=== PATIENT | male | born 1950 | race Caucasian/White ===

== ENCOUNTER → 2017-06-06 | Outpatient (CLI) | payer MEDICARE, OTHER ==
[2015-09-29 21:00] VITALS: BP 139/102
[~2017-06-06] MED LIST: ALOG1TAB PO; ASPI-630 PO; FENO50CA PO; FURO-69 PO; ISOS30TA PO; LINA5TAB4 PO; LOSA25TA PO; NEBI5TAB2 PO; NITR0.4T22 SL; OXYC10TA45 PO; OXYC5CAP PO; PRAV10TA2 PO
[2017-06-06 10:34] LABS: ALBUMIN 3.7 g/dL (3.4-5.0); CALCIUM 9.3 mg/dL (8.5-10.1); CREATININE 1.2 mg/dL (0.7-1.3); GFR 60.6; TOTAL BILIRUBIN 0.5 mg/dL (0.2-1.0); TOTAL PROTEIN 7.5 g/dL (6.4-8.2)
[2017-06-06 22:13] LABS: HEMOGLOBIN A1C 5.4 % (4.8-5.6)
== END | disposition home or self-care (01) ==
LOC: LAB 09:25
PROVIDERS: ATTEND Nurse Practitioner
DX: E78.5 Hyperlipidemia, unspecified (principal); R79.89 Other specified abnormal findings of blood chemistry
CPT/HCPCS: 36415; 80053; 80061; 83036

== ENCOUNTER → 2017-11-01 | Outpatient (CLI) | payer MEDICARE, OTHER ==
[2015-09-29 21:00] VITALS: BP 139/102
[2017-11-02 11:35] LABS: FREE T4 0.79 ng/dL (0.76-1.46); THYROID STIM HORMONE (TSH) 6.257 uIU/mL (0.358-3.740)
== END | disposition home or self-care (01) ==
LOC: LAB 14:14
PROVIDERS: ATTEND Nurse Practitioner
DX: R40.0 Somnolence (principal); E78.5 Hyperlipidemia, unspecified; R94.6 Abnormal results of thyroid function studies
CPT/HCPCS: 36415; 84436; 84439; 84443

== ENCOUNTER → 2017-12-12 | Outpatient (CLI) | payer MEDICARE, OTHER ==
[2015-09-29 21:00] VITALS: BP 139/102
--- NOTE | 2017-12-12 16:18 | RAD ---
Bilateral hands, 6 views, 12/12/2017: HISTORY: Arthritis There are mild degenerative changes at scattered interphalangeal joints. There is moderate degenerative change at the left first CMC joint with several small periarticular calcifications. Degenerative changes also evident at the articulation between the scaphoid and multangular bones. No bone erosions are seen. No fracture or dislocation is evident. IMPRESSION: 1. Mild degenerative changes at scattered interphalangeal joints. 2. Moderate degenerative laterally at the left wrist including the first CMC joint. Electronically signed by: Vargas Leonardo MD (12/12/2017 4:15 PM) [facility]
== END | disposition home or self-care (01) ==
LOC: PMG 12:26
PROVIDERS: ATTEND Physician Assistant Medical
DX: M19.042 Primary osteoarthritis, left hand (principal); M19.041 Primary osteoarthritis, right hand; I12.9 Hypertensive chronic kidney disease with stage 1 through stage 4 chronic kidney disease, or unspecified chronic kidney disease; N18.9 Chronic kidney disease, unspecified; E78.5 Hyperlipidemia, unspecified
CPT/HCPCS: 73130

== ENCOUNTER 2019-01-24 09:33 | Inpatient (IN) | payer MEDICARE, OTHER ==
[~2019-01-24] VITALS: Ht 180.3 cm; Wt 93.9 kg
[~2019-01-24 09:33] MED LIST changes: -OXYC10TA45 PO; +OXYC10TA46 PO
[2019-01-24] MEDS ORDERED: IV NORMAL SALINE 1,000ML 1,000 ML IV ONE ×2 (09:45→11:15)
[2019-01-24 09:57] LABS: BASO % 1 % (0-3); EOS # 0.1 x10^3/uL (0.0-0.7); EOS % 2 % (0-3); HEMOGLOBIN 13.1 g/dL (13.0-17.5); LYMPH # 1.3 x10^3/uL (1.0-4.8); LYMPH % 18 % (24-48); MEAN CORPUSCULAR HEMOGLOBIN 30 pg (25-35); MEAN CORPUSCULAR HGB CONC 33 g/dL (31-37); MEAN CORPUSCULAR VOLUME 92 fL (79-100); MONO # 0.8 x10^3/uL (0.0-1.1); MONO % 11 % (0-9); NEUT # 4.9 x10^3uL (1.8-7.7); NEUT % 69 % (31-73); PLATELET COUNT 192 x10^3/uL (140-400); RED BLOOD COUNT 4.36 x10^6/uL (4.30-5.70); RED CELL DISTRIBUTION WIDTH 14.5 % (11.5-14.5); WHITE BLOOD COUNT 7.2 x10^3/uL (4.0-11.0)
--- NOTE | 2019-01-24 10:02 | PHYS DOC ---
Past History Past Medical History: Depression, Diabetes, High Cholesterol, Heart Disease, Hypertension, SC, Renal Failure Past Surgical History: Other Alcohol Use: None Drug Use: None Adult General Chief Complaint Chief Complaint: ALTERED MENTAL STATUS HPI HPI 68-year-old male presents with altered mental status. The patient woke up on Sunday, 3 days ago, feeling normal. He began to feel slightly ill after eating breakfast. Around 11 AM, he had sudden onset of "the ocean" sound in his left ear, a 2-3 second flash of extremely bright light in his vision, dry mouth, and then the feeling of being off balance and unsteady. The patient got helps to his bed and took a nap. After he laid down and before he went to sleep, he had decreased muscle control of his extremities. He woke up 6 hours later and was able to move his arms and legs. He was able to walk, but continued to feel off balance and had dry mouth as well as the rushing sound in his left ear. The patient was concerned this could be a medication reaction so he is not taking any this prescription medications except for his pain patch and gabapentin. The patient has been on all of his medications for a while. His most recent change was to a new patch 2 weeks ago. On the way to his doctor's office today, he had to chain puller because he was feeling dizzy while driving. He was sent to the emergency room by his primary care physician. She denies any numbness or weakness in his extremities at this time. He can walk, but feels unsteady. He denies fever or chills. He has not been feeling any illness prior to this episode. Review of Systems Review of Systems Constitutional: Denies fever or chills [] Eyes: Denies change in visual acuity, redness, or eye pain [] HENT: Denies nasal congestion or sore throat. Rushing sound in the left ear [] Respiratory: Denies cough or shortness of breath [] Cardiovascular: No additional information not addressed in HPI [] GI: Denies abdominal pain, nausea, vomiting, bloody stools or diarrhea [] : Denies dysuria or hematuria [] Musculoskeletal: Denies back pain or joint pain [] Integument: Denies rash or skin lesions [] Neurologic: Dizziness, difficulty with gait[] Endocrine: Denies polyuria or polydipsia [] All other systems were reviewed and found to be within normal limits, except as documented in this note. Current Medications Current Medications Current Medications Medications (Trade) Dose Ordered Sig/Carl Start Time Stop Time Status Last Admin Dose Admin Sodium Chloride 1,000 ml @ 1,000 mls/hr 1X ONCE 01/24/19 09:45 01/24/19 10:44 Allergies Allergies Allergies Coded Allergies Type Severity Reaction Last Updated Verified No Known Drug Allergies 05/01/14 No Physical Exam Physical Exam Constitutional: Well developed, well nourished, no acute distress, non-toxic appearance. [] HENT: Normocephalic, atraumatic, bilateral external ears normal, oropharynx moist, no oral exudates, nose normal. Bilateral tympanic membranes normal. [] Eyes: PERRLA, EOMI, conjunctiva normal, no discharge. [] Neck: Normal range of motion, no tenderness, supple, no stridor. [] Cardiovascular:Heart rate regular rhythm, no murmur [] Lungs & Thorax: Bilateral breath sounds clear to auscultation [] Abdomen: Bowel sounds normal, soft, no tenderness, no masses, no pulsatile masses. [] Skin: Warm, dry, no erythema, no rash. [] Back: No tenderness, no CVA tenderness. [] Extremities: No tenderness, no cyanosis, no clubbing, ROM intact, no edema. [] Neurologic: Alert and oriented X 3, normal motor function, normal sensory function, no focal deficits noted. [] Psychologic: Affect normal, judgement normal, mood normal. [] Current Patient Data Vital Signs Vital Signs Date Time Temp Pulse Resp B/P (MAP) Pulse Ox O2 Delivery O2 Flow Rate FiO2 01/24/19 09:45 63 18 97 Room Air EKG EKG Sinus rhythm, rate 58, normal axis, no ST elevations or depressions.[] Radiology/Procedures Radiology/Procedures [] Impressions: EXAM: CT Head without IV contrast CLINICAL HISTORY: Altered mental status COMPARISON: None. TECHNIQUE: Routine CT of the head without contrast. Soft tissues and bone windows were reviewed. PQRS compliance statement - One or more of the following individualized dose reduction techniques were utilized for this study: 1. Automated exposure control 2. Adjustment of the mA and/or kV according to patient size 3. Use of iterative reconstruction technique FINDINGS: There is no evidence of hemorrhage, mass or extra-axial fluid collection. Agustin-white differentiation is maintained with no evidence of edema. There is no mass effect or shift of the intracranial structures. The ventricles, basilar cisterns and cortical sulci are normal in size and configuration for the patients stated age. The cerebellum and brainstem are unremarkable. The calvarium demonstrates no evidence of fracture or focal lesion. There is normal aeration of the visualized paranasal sinuses and mastoid air cells. The visualized portions of the orbits are normal. Atherosclerotic calcifications of the intracranial internal carotid and vertebral arteries is seen. IMPRESSION: 1. No evidence for acute intracranial process. Electronically signed by: Andrew Titus MD (01/24/2019 10:18 AM) [id number] DICTATED AND SIGNED BY: ANDREW TITUS MD DATE: 01/24/19 1018 CC: DANIEL CAMPOS DO; MAR[facility] ELENA STARKS ~ EXAM: AP View of the chest DATE: 01/24/2019 9:39 AM INDICATION: Altered mental status COMPARISON: No Prior FINDINGS: The heart is not enlarged. Mediastinal and hilar contours are normal. No focal parenchymal airspace opacity. No pleural effusion or pneumothorax. IMPRESSION: 1. No radiographic evidence for acute cardiopulmonary process. Electronically signed by: Andrew Titus MD (01/24/2019 10:13 AM) [id number] DICTATED AND SIGNED BY: ANDREW TITUS MD DATE: 01/24/19 1013 CC: DANIEL CAMPOS DO; MARÍA ELENA STARKS ~ EXAM: Renal sonogram. HISTORY: Elevated creatinine. TECHNIQUE: Sonographic imaging of the kidneys and bladder was performed. COMPARISON: CT dated 07/21/2016. FINDINGS: The right kidney measures 12.9 cm [id number]. Left kidney measures 12.9 cm [id number]-[id number]. There there is suspected caliectasis involving the upper pole the right kidney. No hydronephrosis seen. There are few echogenic foci within both kidneys likely due to nonobstructing stones, the largest of which is seen on the left measuring 5 mm. The urinary bladder is unremarkable. The ureteral jets are both seen. IMPRESSION: 1. Suspected right upper pole caliectasis. There is no zayda hydronephrosis. 2. Suspected bilateral nephrolithiasis. Electronically signed by: Natalie Walker MD (01/24/2019 1:36 PM) [place] [id number] DICTATED AND SIGNED BY: NATALIE WALKER MD DATE: 01/24/19 8931 CC: DANIEL CAMPOS DO; MARÍA ELENA STARKS ~ Course & Med Decision Making Course & Med Decision Making Pertinent Labs and Imaging studies reviewed. (See chart for details) Patient's EKG is unremarkable. His chest x-ray is unremarkable. His head CT is negative for acute findings. His labs show a creatinine of 4.3 and a BUN of 39. His previous labs in the computer had a normal creatinine of 1.2. The patient is on several medications including Losartan 100mg. I spoke with Dr. Young and he has requested a renal ultrasound prior to the patient. This will determine where he will be admitted to. The patient's ultrasound was negative for obstruction. We'll admit the patient to this facility. Dr. Young has accepted the patient for admission. [] Dragon Disclaimer Dragon Disclaimer This electronic medical record was generated, in whole or in part, using a voice recognition dictation system. Departure Departure: Impression: Primary Impression: Dizziness Additional Impressions: Elevated serum creatinine Gait disturbance Disposition: ADMITTED INPATIENT Admitting Physician: Eliana Young Condition: STABLE Referrals: MARÍA ELENA STARKS (PCP) Problem Qualifiers DANIEL CAMPOS DO Jan 24, 2019 10:02
[2019-01-24] MEDS ORDERED: GABA600T7 PO (10:13)
[2019-01-24] MEDS ORDERED: FERR-36 PO (10:13)
[2019-01-24] MEDS ORDERED: CALC-614 PO (10:13)
[2019-01-24] MEDS ORDERED: TIZA4TAB2 PO (10:13)
[2019-01-24] MEDS ORDERED: MORP15TA PO (10:13)
[2019-01-24] MEDS ORDERED: OMEP20TA8 PO (10:13)
[2019-01-24] MEDS ORDERED: MULT1TAB52 PO (10:13)
[2019-01-24] MEDS ORDERED: CARV25TA PO (10:13)
[2019-01-24] MEDS ORDERED: BUPR1PAT6 TP (10:13)
[2019-01-24] MEDS ORDERED: LEVO75TA5 PO (10:13)
[2019-01-24 10:15] LABS: ALBUMIN 3.6 g/dL (3.4-5.0); ALBUMIN/GLOBULIN RATIO 1.1 (1.0-1.7); CALCIUM 8.4 mg/dL (8.5-10.1); CREATININE 4.3 mg/dL (0.7-1.3); GFR 13.8; POTASSIUM 4.4 mmol/L (3.5-5.1); TOTAL BILIRUBIN 0.8 mg/dL (0.2-1.0); TOTAL PROTEIN 6.8 g/dL (6.4-8.2)
--- NOTE | 2019-01-24 10:16 | RAD ---
EXAM: AP View of the chest DATE: 01/24/2019 9:39 AM INDICATION: Altered mental status COMPARISON: No Prior FINDINGS: The heart is not enlarged. Mediastinal and hilar contours are normal. No focal parenchymal airspace opacity. No pleural effusion or pneumothorax. IMPRESSION: 1. No radiographic evidence for acute cardiopulmonary process. Electronically signed by: Andrew Vivas MD (01/24/2019 10:13 AM) [id number]
--- NOTE | 2019-01-24 10:21 | RAD ---
EXAM: CT Head without IV contrast CLINICAL HISTORY: Altered mental status COMPARISON: None. TECHNIQUE: Routine CT of the head without contrast. Soft tissues and bone windows were reviewed. PQRS compliance statement - One or more of the following individualized dose reduction techniques were utilized for this study: 1. Automated exposure control 2. Adjustment of the mA and/or kV according to patient size 3. Use of iterative reconstruction technique FINDINGS: There is no evidence of hemorrhage, mass or extra-axial fluid collection. Agustin-white differentiation is maintained with no evidence of edema. There is no mass effect or shift of the intracranial structures. The ventricles, basilar cisterns and cortical sulci are normal in size and configuration for the patients stated age. The cerebellum and brainstem are unremarkable. The calvarium demonstrates no evidence of fracture or focal lesion. There is normal aeration of the visualized paranasal sinuses and mastoid air cells. The visualized portions of the orbits are normal. Atherosclerotic calcifications of the intracranial internal carotid and vertebral arteries is seen. IMPRESSION: 1. No evidence for acute intracranial process. Electronically signed by: Andrew Vivas MD (01/24/2019 10:18 AM) [id number]
[2019-01-24 11:04] LABS: BACTERIA,URINE 0 /HPF (0-FEW); BILIRUBIN,URINE NEG (NEG); CLARITY,URINE HAZY; COLOR,URINE AMBER; GLUCOSE,URINE NEG (NEG); HYALINE CASTS, URINE OCC /HPF; NITRITE,URINE NEG (NEG); RBC,URINE RARE /HPF (0-2); SQUAMOUS EPITHELIAL CELL,UR FEW /LPF; UROBILINOGEN,URINE 0.2 mg/dL (0.2 mg/dL); WBC,URINE RARE /HPF (0-4)
--- NOTE | 2019-01-24 13:39 | RAD ---
EXAM: Renal sonogram. HISTORY: Elevated creatinine. TECHNIQUE: Sonographic imaging of the kidneys and bladder was performed. COMPARISON: CT dated 07/21/2016. FINDINGS: The right kidney measures 12.9 cm [id number]. Left kidney measures 12.9 cm wefw-ly-jtlp. There there is suspected caliectasis involving the upper pole the right kidney. No hydronephrosis seen. There are few echogenic foci within both kidneys likely due to nonobstructing stones, the largest of which is seen on the left measuring 5 mm. The urinary bladder is unremarkable. The ureteral jets are both seen. IMPRESSION: 1. Suspected right upper pole caliectasis. There is no zayda hydronephrosis. 2. Suspected bilateral nephrolithiasis. Electronically signed by: Natalie Munoz MD (01/24/2019 1:36 PM) [id number]
[2019-01-24 16:05] VITALS: BP 177/81
[2019-01-24] MEDS: IV NORMAL SALINE 1,000ML 1,000 ML IV SCH ×2 (16:55→22:12)
[2019-01-24] MEDS: CARVEDILOL 12.5 MG TABLET PO SCH (16:55)
[2019-01-24 17:55] VITALS: BP 137/69
[2019-01-24 17:57] VITALS: BP 143/74
[2019-01-24 17:59] VITALS: BP 139/65
[2019-01-24 18:25] LABS: POTASSIUM 4.7 mmol/L (3.5-5.1)
[2019-01-24 18:36] LABS: CALCIUM 8.4 mg/dL (8.5-10.1); CREATININE 3.6 mg/dL (0.7-1.3); GFR 16.9
--- NOTE | 2019-01-24 18:49 | HP ---
ADMIT DATE: 01/24/2019 HISTORY OF PRESENT ILLNESS: The patient is a 68-year-old male patient who came to the Emergency Room with altered mental status. According to him, he woke up on Sunday, 3 days ago feeling normal. He began to feel slightly ill and ate the breakfast and at around 11:00 a.m., he had sudden onset of rushing sound in his left ear and 2 to 3 seconds flash pf extremely bright lights in his vision, had dry mouth and then feeling of being off balance and unsteady. The patient then got helped his bed, took a nap, after he laid down and before he went to sleep, he had had decreased muscle control of his extremities. He woke up 6 hours later and was able to move his arms and legs. He was able to walk, but continued to feel off balance and had a dry mouth as well as the rushing sound in his left ear. The patient was concerned that this could be medication reaction so he had not taken any of his prescription medication except his pain patch and gabapentin. The patient has been off of all his medication for a while. His most recent change was to a new patch 2 weeks ago. On the way to his doctor's office today, he had to harness puller because he was feeling dizzy while driving, he was sent to the Emergency Room by his primary care physician. He denied, however, any numbness or weakness on his extremities. By the time he arrived to the Emergency Room, where he can walk, but feels unsteady. He denies any fevers, chills, rigors, never had similar illness prior to this episode, he was extensively investigated in the Emergency Room and striking finding was his kidney function has dramatically worsened. His creatinine has risen from 1.2-4.3 and looking at his medication, he is not on any nephrotoxic medication except his losartan. He has had abdominal ultrasound, which basically showed that there is no evidence of hydronephrosis, but has what seems to be bilateral nephrolithiasis. He was given 2 liters of fluid in the Emergency Room, was admitted to the ICU, continue with IV fluid. I held his losartan and aspirin. Continue with all his other medications. PAST MEDICAL HISTORY: Significant for coronary artery disease, status post myocardial infarction, status post stent deployment x 2. He is known to have hypertension, hyperlipidemia, chronic kidney disease, nephrolithiasis, hypothyroidism and left renal cell tumor with partial resection about 4 years ago. PAST SURGICAL HISTORY: Significant for left heart catheterization, PCI with stent deployment, right total knee arthroplasty, bilateral cataract extraction, 3 back surgeries, left elbow surgery. He also had a gastric bypass surgery on 06/27/2016 after which he lost about 106 pounds. ALLERGIES: He has no known drug allergies. MEDICATIONS: He is currently on following medications: He is on tizanidine 4 mg twice a day, ferrous sulfate 325 mg once a day, pravastatin sodium 10 mg once a day, carvedilol 12.5 mg twice a day, losartan potassium 100 mg once a day. He is on aspirin 81 mg once a day, morphine sulfate 50 mg twice a day. He is on Butrans 1 patch topically once weekly. He is on gabapentin 600 mg 3 times a day, calcium citrate 200 mg once a day, omeprazole 20 mg once a day, levothyroxine 25 mcg once a day, multivitamin 1 tablet once a day. FAMILY HISTORY: He has one sister who is still alive and two brothers, one has what seemed to be left middle cerebral artery territory infarct with right-sided hemiplegia and aphasia, the other one seems to be some form of mental illness and has been on psychotropic medication. His sister at age of 69 because of myocardial infarction. His father is still alive at the age of 92. Mother at the age of 63 because of myocardial infarction. SOCIAL HISTORY: He is , has 2 sons. He quit smoking in 1980. He does not drink alcohol or use recreational drugs. REVIEW OF SYSTEMS: As per history of present illness. PHYSICAL EXAMINATION: GENERAL: On arrival to the Emergency Room, the patient looked well and was clearly in no apparent respiratory distress. No pallor, jaundice, cyanosis or thyromegaly. No jugular venous distention. No lower limb edema. VITAL SIGNS: His heart rate was 63, blood pressure was initially 177/81, temperature was 97.7, respiratory rate was 22 and oxygen saturation was 99%. HEAD, EYES, EARS, NOSE AND THROAT: Normocephalic, atraumatic. NECK: Supple. HEART: Showed normal first and second heart sounds with no gallop, rub or murmur. CHEST: Clear to auscultation. No crepitation or rhonchi. ABDOMEN: Distended, soft, nontender. No guarding or rigidity. No organomegaly. All hernial orifice intact. Bowel sounds normal. NEUROLOGIC: He is awake, alert, responding appropriately. All cranial nerves intact. EXTREMITIES: He moves extremities without difficulty. LABORATORY DATA: On arrival to the Emergency Room, he has had lab work done showed a serum sodium 143, potassium 4.4, chloride 104, bicarbonate 30, anion gap of 9, BUN 39, creatinine 4.3, estimated GFR was 13.8 mL per minute. His glucose was 91, calcium was 8.4. Total bilirubin, AST, ALT, alkaline phosphatase were normal. His total protein was 6.8, albumin was 3.6. His white cell count was 7200, hemoglobin 13, hematocrit 40, MCV 92, and platelet count of 192,000. His urinalysis showed the urine was hazy with a pH of 5, specific gravity of 1.015. The urine was negative for protein, glucose, ketones, negative for blood, nitrite and bilirubin, negative for leukocyte esterase, rare rbc's, rare wbc's, and very few bacteria. He apparently has had a CT scan of the head, which basically showed that there is no evidence of hemorrhage, mass, or extraaxial fluid collection. Jacques-white differentiation is maintained with no evidence of edema. There is no mass effect or shift, midline intent or intracranial structures. The ventricles, basilar cisterns and cortical sulci are normal in size and configuration for the patient's stated age. The cerebellum and brainstem are unremarkable. The calvarium demonstrates no evidence of fracture or focal lesion. There is normal aeration in the visualized paranasal sinuses and mastoid air cells are visualized portion of the orbits are normal. Atherosclerotic calcification of the intracranial internal carotid and vertebral arteries are seen. The patient has received around 2 liters of fluid. His chest x-ray showed the heart is not enlarged. Mediastinal hilar contours are normal. No focal parenchymal airspace opacity. No pleural effusion or pneumothorax and he has had abdominal ultrasound, which basically showed the right kidney measures 12.9 cm, pole to pole, left kidney was 12.9. There is suspected atelectasis involving the upper pole of the right kidney, no hydronephrosis seen. There are few echogenic foci within both kidneys, likely due to nonobstructing stones, the largest of which is seen on the left measuring 5 mm. The urinary bladder is unremarkable. Ureteral jets are both seen. ASSESSMENT AND PLAN: The patient was admitted with acute on chronic kidney injury, the cause of which is very clear. There is no evidence of any obstruction. He denies any nausea, vomiting, diarrhea. He is not on any diuretics. My plan is to hold his losartan and start him on IV fluid. He did receive 2 liters of fluid in the Emergency Room. We will continue with 150 mL. We will check his BMP tonight and again tomorrow morning. JAJA FRIED MD DR: NICKOLAS/sherman JOB#: [id number] / [id number]
[2019-01-24 19:16] VITALS: BP 126/64
[2019-01-24] MEDS: GABAPENTIN 300 MG CAPSULE. PO SCH (19:50)
[2019-01-24] MEDS: tiZANidine 4 MG TABLET. PO SCH (19:50)
[2019-01-24] MEDS: ATORVASTATIN CALCIUM 10 MG TABLET. PO SCH (19:50)
[2019-01-24] MEDS: MORPHINE ER 15 MG TABLET.ER PO SCH (19:50)
[2019-01-25] MEDS: IV NORMAL SALINE 1,000ML 1,000 ML IV SCH ×3 (05:11→23:34)
[2019-01-25 06:06] VITALS: BP 117/65
[2019-01-25 06:41] LABS: ALBUMIN 2.8 g/dL (3.4-5.0); ALBUMIN/GLOBULIN RATIO 0.9 (1.0-1.7); C REACTIVE PROTEIN 7.8 mg/L (0-3.3); CALCIUM 7.8 mg/dL (8.5-10.1); CREATININE 2.7 mg/dL (0.7-1.3); GFR 23.6; POTASSIUM 4.4 mmol/L (3.5-5.1); TOTAL BILIRUBIN 0.5 mg/dL (0.2-1.0)
[2019-01-25] MEDS: PANTOPRAZOLE 40 MG TABLET. PO SCH (07:45)
[2019-01-25] MEDS: CARVEDILOL 12.5 MG TABLET PO SCH ×2 (07:45→17:05)
[2019-01-25] MEDS: tiZANidine 4 MG TABLET. PO SCH ×2 (08:46→21:06)
[2019-01-25] MEDS: LEVOTHYROXINE 75 MCG TABLET PO SCH (08:46)
[2019-01-25] MEDS: FERROUS SULFATE 325 MG TABLET. PO SCH (08:46)
[2019-01-25] MEDS: GABAPENTIN 300 MG CAPSULE. PO SCH ×3 (08:46→21:06)
[2019-01-25] MEDS: MULTIVITAMIN with MINERAL TABLET. PO SCH (08:46)
[2019-01-25] MEDS: MORPHINE ER 15 MG TABLET.ER PO SCH ×2 (08:57→20:25)
[2019-01-25] MEDS: CALCIUM CITRATE 200 MG PO SCH (09:00)
[2019-01-25 11:09] VITALS: BP 105/61
[2019-01-25] MEDS ORDERED: BISACODYL TAB 5 MG TABLET.DR. PO PRN (11:30)
[2019-01-25] MEDS: DOCUSATE SODIUM 100 MG CAPSULE PO SCH (13:38)
--- NOTE | 2019-01-25 13:49 | PN ---
DATE: 01/25/2019 SUBJECTIVE: The patient is resting flat, sleeping comfortably, in no apparent distress. On questioning him, he denied any complaint and in particular, he did not complain of any dizziness or lightheadedness, although he has not yet walked; however, yesterday, we did orthostatics and checked her orthostatic blood pressure and there was no difference between lying, sitting and standing, in fact his blood pressure supine was 137/69, sitting was 143/74 and standing was 139/65. PHYSICAL EXAMINATION: GENERAL: When I examined him this morning, he looked well and was clearly in no apparent respiratory distress. No pallor, jaundice, cyanosis or thyromegaly. No jugular venous distention. No lower limb edema. VITAL SIGNS: His heart rate was 67, blood pressure was 117/65, temperature was 97.8, respiratory rate was 18 and oxygen saturation was 97%. HEAD, EYES, EARS, NOSE AND THROAT: Normocephalic, atraumatic. NECK: Supple. HEART: Showed normal first and second heart sounds. No gallop, rub or murmur. CHEST: Clear to auscultation. No crepitation or rhonchi. ABDOMEN: Distended, soft, nontender. No guarding or rigidity. No organomegaly. All hernial orifice intact. Bowel sounds normal. NEUROLOGIC: He is awake, alert, responding appropriately. All cranial nerves are intact. He moves extremities without difficulty. His intake over the last 24 hours was 5600, output was 1400. LABORATORY DATA: As of this morning, his serum sodium was 143, potassium 4.4, chloride 109, bicarbonate 26, anion gap of 8, BUN 36, creatinine was 2.7, estimated GFR was 23.6 mL per minute, his glucose was 85, calcium was 7.8. Total bilirubin, AST, ALT, alkaline phosphatase were normal. Total protein was 6, albumin 2.8. His total CK was only 62. His C-reactive protein was 7.8. His sedimentation rate was 51 mm per hour. ASSESSMENT AND PLAN: 1. Acute on chronic kidney injury, the cause of which is not very clear. 2. There was no evidence of any obstruction. The patient denied any nausea, vomiting or diarrhea. He is not on any diuretics. I did discontinue his losartan and started him on IV fluid. His serum creatinine is steadily improving. In fact, his creatinine came down from 4.3 yesterday morning to 2.7 this morning. The patient denied any further episodes of unsteady gait or flashing light in his eyes; however, I will consult Dr. Bnod to see him, although his CT scan was unremarkable. Other medical problems include coronary artery disease, status post myocardial infarction, status post stent deployment x 2; hypertension; hyperlipidemia; nephrolithiasis; hypothyroidism; left renal cell tumor; partial resection of his left kidney. JAJA FRIED MD DR: NICKOLAS/sherman JOB#: [id number] / [id number]
--- NOTE | 2019-01-25 15:27 | RAD ---
Bilateral carotid arterial duplex study 01/25/2019 CLINICAL HISTORY: Dizziness. TECHNIQUE: Using a combination of real-time ultrasound imaging and color-flow and pulse Doppler imaging techniques, duplex evaluation of the common carotid arteries, carotid bifurcations and internal carotid arteries along with the vertebral arteries within the neck was performed. Multiple images were obtained. Stenosis calculations for carotid ultrasound are based on validated velocity measurements which are noted to correlate with the NASCET methodology. FINDINGS: Mild to moderate atheromatous/atherosclerotic plaque formation is seen involving both carotid bifurcations and proximal internal carotid arteries bilaterally. The peak systolic velocities are not elevated. No hemodynamically significant stenosis is seen. Both vertebral arteries demonstrate normal antegrade flow. IMPRESSION: Mild to moderate atheromatous/atherosclerotic plaque formation is seen involving both carotid bifurcations. No hemodynamically significant stenosis or area of occlusion is seen. Electronically signed by: Cipriano Fagan MD (01/25/2019 3:24 PM) [facility] [place]
[2019-01-25 16:00] VITALS: BP 160/70
[2019-01-25 19:13] VITALS: BP 147/78
[2019-01-25] MEDS: ATORVASTATIN CALCIUM 10 MG TABLET. PO SCH (21:06)
--- NOTE | 2019-01-25 22:52 | CONS ---
DATE OF CONSULTATION: 01/25/2019 REFERRING PHYSICIAN: Dr. Young. REASON FOR CONSULTATION: Severe dizziness and generalized weakness. HISTORY OF PRESENT ILLNESS: This is a 68-year-old right-handed male who was admitted through Emergency Room yesterday after he presented with a 3-day history of severe dizziness described as unsteadiness and sudden onset of rushing sounds confined to the left ear, which has been constant since admission. The patient also complains of decreased vision and generalized weakness mainly in the lower extremities. He woke up in the morning and he felt dizzy, then he slept 6 hours. After that, the patient was able to move his upper and lower extremities. Because of his having rushing sound in the left ear and intermittent dizziness, he was evaluated in the Emergency Room where a head CT scan was reviewed and revealed no evidence of acute intracranial process. The lab workup revealed evidence of dehydration and elevated BUN and creatinine. The abdomen ultrasound revealed evidence of bilateral nephrolithiasis and suspected right upper pole calicectasis. Currently, he denies headaches, visual disturbances, nausea, vomiting, chest pain, shortness of breath or palpitation, but he complains of constant lower back pain and sometimes radiating to the hips. He denies true vertigo. He also complains of numbness and paresthesia of the lower extremities related to peripheral neuropathy. 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 SOCIAL HISTORY: The patient denies smoking, alcohol drinking, or illicit drug use. The patient is . He has 2 sons. He quit smoking in 1980. FAMILY HISTORY: Sister at the age of 69 from heart attack question myocardial infarction and father is alive at the age of 92. Mother at the age of 63 because of myocardial infarction as well. REVIEW OF SYSTEMS: A 10-point review of system was performed as mentioned above in history of present illness, otherwise unremarkable. CURRENT MEDICATIONS: Ferrous sulfate 325 mg daily, pantoprazole 40 mg p.o. daily, Lipitor 5 mg at bedtime, gabapentin 600 mg t.i.d., tizanidine 4 mg b.i.d., carvedilol 12.5 mg twice daily. He used to be on aspirin 81 mg daily and losartan, which has been on hold since admission. ALLERGIES: No known drug allergies. PHYSICAL EXAMINATION: GENERAL: Well-developed, well-nourished male, not in acute distress. He weighs 92.7 kilos. VITAL SIGNS: Blood pressure 105/61, respiratory rate 18, pulse is 56, temperature 97, oxygen saturation 97% on room air. The patient does have orthostatic hypotension. HEENT: Normocephalic, atraumatic, otherwise unremarkable. NECK: Supple. Negative for carotid bruit, lymphadenopathy or thyromegaly. LUNGS: Clear to A and P. CARDIOVASCULAR: Regular rate and rhythm, normal S1, S2. There is no S3, S4 or murmur. ABDOMEN: Soft. Bowel sounds positive. EXTREMITIES: Negative for cyanosis, clubbing or edema. NEUROLOGIC: Mental status: The patient is alert and oriented x 3. Speech is fluent. There is no language dysfunction. Memory, judgment, and abstract thinking are normal. The patient denies hallucination or delusion. CRANIAL NERVES: Visual carroll are full. The pupils are reactive to light and accommodation. The extraocular movements are intact. There is no nystagmus. There is no facial motor or sensory deficit. Hearing is slightly diminished on the left side compared to that on the right side. The palate is elevated symmetrically. Sternocleidomastoid muscles are powerful bilaterally. The patient shrugs his shoulders symmetrically, protrudes his tongue in the midline without fasciculation or atrophy. MOTOR EXAMINATION: No focal muscle bulk was seen. The tone is normal. The strength is 5/5 throughout. Sensory examination revealed diminished pinprick and light touch senses in patchy distributions, in glove and stocking distributions. Deep tendon reflexes were asymmetric and hypoactive with absent Achilles responses. Gait: The stance is steady. The patient has positive Romberg's sign. LABORATORY DATA: CBC revealed white blood cells of 7.2 thousand, hemoglobin 13.1, hematocrit 40, platelet count 192,000. Chemistry revealed sodium of 143, potassium 4.4, chloride 109, CO2 26, BUN 36 dropped from 39 on admission and creatinine 2.7 dropped from 4.3 on admission, glucose is 85, and calcium 7.8. CRP is elevated at 7.8. Troponin level is normal with normal creatine kinase at 62. Urinalysis negative for urinary tract infections. IMPRESSION: 1. Chronic and acute kidney disease with current dehydration. However, the patient stated he drinks enough liquid daily. 2. Severe dizziness described as unsteadiness, probably multifactorial including dehydration and peripheral neuropathy of the lower extremities. 3. Multiple medical problems including hypertension, hyperlipidemia, coronary artery disease, chronic low back pain and peripheral neuropathy in the upper and lower extremities. RECOMMENDATIONS: 1. We will obtain bilateral color Doppler study. 2. Continue with current management initiated by Dr. Young. M Tulio PETIT MD DR: PAWEL/sherman JOB#: [id number] / [id number]
[2019-01-26 06:16] VITALS: BP 141/73
[2019-01-26] MEDS: LEVOTHYROXINE 75 MCG TABLET PO SCH (06:20)
[2019-01-26] MEDS: PANTOPRAZOLE 40 MG TABLET. PO SCH (06:21)
[2019-01-26 06:50] LABS: CALCIUM 7.9 mg/dL (8.5-10.1); CREATININE 1.8 mg/dL (0.7-1.3); GFR 37.7; POTASSIUM 4.4 mmol/L (3.5-5.1)
[2019-01-26] MEDS: CARVEDILOL 12.5 MG TABLET PO SCH ×2 (07:56→17:16)
[2019-01-26] MEDS: FERROUS SULFATE 325 MG TABLET. PO SCH (08:56)
[2019-01-26] MEDS: DOCUSATE SODIUM 100 MG CAPSULE PO SCH (08:56)
[2019-01-26] MEDS: GABAPENTIN 300 MG CAPSULE. PO SCH ×3 (08:57→20:39)
[2019-01-26] MEDS: MORPHINE ER 15 MG TABLET.ER PO SCH ×2 (08:57→20:39)
[2019-01-26] MEDS: tiZANidine 4 MG TABLET. PO SCH ×2 (08:57→20:39)
[2019-01-26] MEDS: MULTIVITAMIN with MINERAL TABLET. PO SCH (08:57)
[2019-01-26] MEDS: CALCIUM CITRATE 200 MG PO SCH (09:00)
[2019-01-26] MEDS: IV NORMAL SALINE 1,000ML 1,000 ML IV SCH ×2 (10:09→21:11)
[2019-01-26 12:18] VITALS: BP 152/84
[2019-01-26] MEDS ORDERED: DOCUSATE SODIUM 100 MG CAPSULE PO SCH (13:00)
--- NOTE | 2019-01-26 14:32 | RAD ---
RENAL ARTERY ARTERIAL DOPPLER ULTRASOUND Clinical Indication: Acute kidney injury, hypertension. Comparison: Renal ultrasound, January 24, 2019. Technique: Multiple grayscale, color flow, and Doppler spectral waveform analysis images of the abdominal aorta and renal arteries were obtained. Findings: Abdominal aorta peak systolic velocity: 94 cm/sec. Right main renal artery peak systolic velocity: 54 cm/sec. Right renal artery to aorta ratio: 0.57 Left main renal artery peak systolic velocity: 76 cm/sec. Left renal artery to aorta ratio: 0.80 Renal veins are patent. The right kidney measures 12.3 cm. The left kidney measures 13.1 cm. Probable right upper pole caliectasis is redemonstrated. No hydronephrosis. IMPRESSION: No evidence of hemodynamically significant renal artery stenosis. Electronically signed by: Wilson Brar MD (01/26/2019 2:29 PM) [facility]
[2019-01-26 16:45] VITALS: BP 197/89
[2019-01-26 18:27] VITALS: BP 165/83
[2019-01-26 20:12] VITALS: BP 156/78
[2019-01-26] MEDS: ATORVASTATIN CALCIUM 10 MG TABLET. PO SCH (20:39)
[2019-01-26 23:22] VITALS: BP 182/95
--- NOTE | 2019-01-27 00:04 | PN ---
DATE: 01/26/2019 SUBJECTIVE: The patient is sitting ____, in no apparent distress. His kidney function continued to improve, creatinine down to 1.8. His baseline is 1.4. It was not clear why he went into acute renal failure and ____ renal artery stenosis. So, I will arrange for him to have arterial duplex ultrasound of both renal arteries and repeat his labs tomorrow morning and he can go home and follow with his primary care physician. PHYSICAL EXAMINATION GENERAL: When I saw him this afternoon, he looked well and was clearly in no apparent respiratory distress, pale. No jaundice, cyanosis or thyromegaly. No jugular venous distention. No limb edema. VITAL SIGNS: His heart rate was 58, blood pressure 152/84, temperature was 97, respiratory rate was 20, and oxygen saturation was 94% on room air. The rest of the exam is stable. His intake was 5600, output was 1400. LABORATORY DATA: As of this morning, his serum sodium 145, potassium 4.4, chloride 111, bicarbonate 27, anion gap of 7, BUN of 29, creatinine 1.8, estimated GFR was 57 mL per minute. His glucose was 83, calcium was 7.9. His blood count is stable. ASSESSMENT AND PLAN: 1. [id number] kidney injury, improving, although the cause of which is not clear. He is on losartan. He could have bilateral renal artery stenosis. 2. There is definitely no evidence of obstruction. The patient denied any nausea, vomiting or diarrhea. He is not on any diuretics. I did discontinue his losartan and start him on IV fluid. Other medical problems include coronary artery disease, status post myocardial infarction, status post stent deployment, hypertension, hyperlipidemia, nephrolithiasis, hypothyroidism, left renal cell tumor and partial resection of his left kidney. JAJA FRIED MD DR: NICKOLAS/sherman JOB#: [id number] / [id number]
[2019-01-27 05:07] VITALS: BP 161/88
[2019-01-27 06:26] LABS: CALCIUM 8.2 mg/dL (8.5-10.1); CREATININE 1.4 mg/dL (0.7-1.3); GFR 50.4; POTASSIUM 4.3 mmol/L (3.5-5.1)
[2019-01-27] MEDS: LEVOTHYROXINE 75 MCG TABLET PO SCH (06:38)
[2019-01-27] MEDS: PANTOPRAZOLE 40 MG TABLET. PO SCH (07:44)
[2019-01-27] MEDS: IV NORMAL SALINE 1,000ML 1,000 ML IV SCH (08:48)
[2019-01-27] MEDS: CALCIUM CITRATE 200 MG PO SCH (09:00)
[2019-01-27] MEDS: MULTIVITAMIN with MINERAL TABLET. PO SCH (09:01)
[2019-01-27] MEDS: DOCUSATE SODIUM 100 MG CAPSULE PO SCH (09:01)
[2019-01-27] MEDS: FERROUS SULFATE 325 MG TABLET. PO SCH (09:01)
[2019-01-27] MEDS: tiZANidine 4 MG TABLET. PO SCH (09:02)
[2019-01-27] MEDS: MORPHINE ER 15 MG TABLET.ER PO SCH (09:02)
[2019-01-27] MEDS: GABAPENTIN 300 MG CAPSULE. PO SCH ×2 (09:04→13:40)
[2019-01-27] MEDS: CARVEDILOL 12.5 MG TABLET PO SCH (09:04)
[2019-01-27 09:10] VITALS: BP 178/86
[2019-01-27] MEDS ORDERED: AMLO10TA8 PO (13:14)
[2019-01-27 13:20] VITALS: BP 199/100
[2019-01-27] MEDS ORDERED: amLODIPine BESYLATE 10 MG TABLET PO SCH (13:30)
[2019-01-27 14:20] VITALS: BP 183/99
[2019-01-27 14:54] VITALS: BP 188/101
[2019-01-27 15:30] VITALS: BP 164/88
--- NOTE | 2019-01-27 22:50 | DS ---
DATE OF DISCHARGE: HOSPITAL COURSE: The patient is a 68-year-old male patient who was admitted with acute on chronic kidney injury. He has also very unsteady gait and we did basically held his losartan and started him on IV fluid. His kidney function has steadily improved. His creatinine came down from 4.3 down to 1.4, which is baseline and his BUN also came down from 39 to 20. He was seen in consultation by Dr. Bond and we did actually a carotid Doppler ultrasound, which showed [id number] atherosclerotic plaque formation seen involving both carotid bifurcation, no hemodynamically significant stenosis or areas of occlusion is seen. Given that his kidney function came out of blue, I did actually order renal arterial Doppler ultrasound, which showed that the right mean arterial artery peak systolic velocity of 54 cm/sec, right renal artery to aorta ratio was 0.57. Left main renal artery peak systolic velocity was 0.76 cm/sec. The left renal artery to aorta ratio was 0.8. Renal veins are patent. The right kidney measures 12.3 cm, the left kidney measures 13.1 cm, probable right upper pole caliectasis is demonstrated, no hydronephrosis. Impression: No evidence of hemodynamically significant renal artery stenosis. I discontinued his losartan. I started him on amlodipine 10 mg once a day and arrangement to have an MRI of the brain to be done as an outpatient. PHYSICAL EXAMINATION: GENERAL: When I saw him today, he looked well and was clearly in no apparent respiratory distress. No pallor, jaundice, cyanosis or thyromegaly. No jugular venous distention. No lower limb edema. VITAL SIGNS: His heart rate was 71, blood pressure 178/86, temperature was 97.8, respiratory rate was 20, and oxygen saturation was 95% on room air. HEAD, EYES, EARS, NOSE AND THROAT: Showed normocephalic, atraumatic. NECK: Supple. HEART: Showed normal first and second heart sounds. No gallop, rub or murmur. CHEST: Clear to auscultation. No crepitation or rhonchi. ABDOMEN: Distended, soft, nontender. No guarding or rigidity. No organomegaly. All hernial orifice intact. Bowel sounds normal. NEUROLOGIC: He was awake, alert, responding appropriately. All cranial nerves are intact. He moves extremities without difficulty, ambulates without assistance or assistive devices. His intake was 3200, output was 5200. LABORATORY DATA: As of this morning, his serum sodium 144, potassium 4.3, chloride 109, bicarbonate 27, anion gap of 8, BUN 20, creatinine 1.4, estimated GFR was 50 mL per minute, his glucose was 87, calcium was 8.2. His most recent white cell count was 7200, hemoglobin 13, hematocrit 40, MCV 92, and platelet count of 192,000. DISCHARGE MEDICATIONS: He was discharged home to continue on amlodipine besylate 10 mg once a day, aspirin 81 mg once a day. He is on Butrans 1 patch topically weekly, calcium citrate 200 mg daily, carvedilol 12.5 mg twice a day with meals, ferrous sulfate 325 mg daily, gabapentin 600 mg 3 times a day, levothyroxine sodium 75 mcg once a day, morphine sulfate 15 mg twice a day, multivitamin 1 tablet once a day, omeprazole 20 mg once a day, pravastatin sodium 10 mg once a day, tizanidine 4 mg twice a day. FINAL DISCHARGE DIAGNOSES: 1. Acute on chronic kidney injury, multifactorial. 2. Unsteady gait, which he was seen by Dr. Bond, who thinks also it is multifactorial related to dehydration and peripheral neuropathy. 3. He has multiple other medical problems including hypertension, hyperlipidemia, chronic kidney disease, nephrolithiasis, hypothyroidism, coronary artery disease, status post myocardial infarction, status post stent deployment x 2. JAJA FRIED MD DR: NICKOLAS/sherman JOB#: [id number] / [id number]
--- NOTE | 2019-01-28 01:41 | PN ---
DATE: 01/27/2019 The patient is a well-developed, well-nourished male, not in acute distress. OBJECTIVE: VITAL SIGNS: Blood pressure 178/86, respiratory rate 20, pulse is 71 and regular, ____ 95% on room air. HEENT: Normocephalic, atraumatic, otherwise unremarkable. NECK: Supple. Negative for carotid bruit, lymphadenopathy or thyromegaly. LUNGS: Clear to A and P. CARDIOVASCULAR: Regular rhythm, normal S1, S2. There is no S3, S4 or murmur. ABDOMEN: Soft. Bowel sounds positive. EXTREMITIES: Negative for cyanosis, clubbing or pitting edema. NEUROLOGIC: Normal mental status and intact cranial nerves. There is no nystagmus. Motor examination: No focal muscle bulk was seen, 5/5 throughout. Sensory examination revealed normal pinprick and light touch senses in patchy distributions in stocking and glove distributions. Deep tendon reflexes were symmetric and hypoactive with absent Achilles responses. Gait: The stance is steady, the patient walks. IMPRESSION: 1. Severe dizziness described as unsteadiness, probably multifactorial including dehydration, peripheral neuropathy of the lower extremities. 2. Chronic and acute kidney disease. 3. Multiple medical problems including hypertension, hyperlipidemia, coronary artery disease, chronic low back pain and neuropathy of the lower extremities. Renal arterial Doppler ultrasound revealed no evidence of significant renal arterial stenosis. RECOMMENDATIONS: Continue with current management initiated by Dr. Young. The patient is neurologically stable. M Tulio PETIT MD DR: PAWEL/sherman JOB#: [id number] / [id number]
--- NOTE | 2019-01-28 16:07 | EKG ---
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
[2019-01-31] MEDS ORDERED: NON FORMULARY ITEM (Buprenorphine (Butrans) 1 PATCH) TP SCH (09:00)
== END 2019-01-27 15:30 | disposition home or self-care (01) | DRG 640 ==
LOC: ER 09:33 → ICU 15:07
PROVIDERS: ADMIT Internal Medicine; ATTEND Internal Medicine
DX: E86.0 Dehydration (principal); N17.0 Acute kidney failure with tubular necrosis; E11.42 Type 2 diabetes mellitus with diabetic polyneuropathy; N18.9 Chronic kidney disease, unspecified; E11.22 Type 2 diabetes mellitus with diabetic chronic kidney disease; I12.9 Hypertensive chronic kidney disease with stage 1 through stage 4 chronic kidney disease, or unspecified chronic kidney disease; E78.00 Pure hypercholesterolemia, unspecified; F32.9 Major depressive disorder, single episode, unspecified; I25.10 Atherosclerotic heart disease of native coronary artery without angina pectoris; E78.5 Hyperlipidemia, unspecified; E03.9 Hypothyroidism, unspecified; Z96.651 Presence of right artificial knee joint; G89.29 Other chronic pain; H54.7 Unspecified visual loss; I25.2 Old myocardial infarction; Z95.5 Presence of coronary angioplasty implant and graft; Z98.41 Cataract extraction status, right eye; Z98.42 Cataract extraction status, left eye; Z98.84 Bariatric surgery status; Z87.891 Personal history of nicotine dependence; Z82.49 Family history of ischemic heart disease and other diseases of the circulatory system; Z87.442 Personal history of urinary calculi
CPT/HCPCS: 36415; 70450; 71045; 76770; 80048; 80053; 81001; 82550; 84484; 85025; 85651; 86140; 87641; 93005; 93880; 93975; 97116; 99285-25; J7030

== ENCOUNTER 2019-01-28 11:05 | Emergency (ER) | payer MEDICARE, OTHER ==
[~2019-01-28] VITALS: Ht 180.3 cm; Wt 92.5 kg
[~2019-01-28 11:05] MED LIST changes: +AMLO10TA8 PO; +BUPR1PAT6 TP; +CALC-614 PO; +CARV25TA PO; +FERR-36 PO; +GABA600T7 PO; +LEVO75TA5 PO; +MORP15TA PO; +MULT1TAB52 PO; +OMEP20TA8 PO; +TIZA4TAB2 PO
--- NOTE | 2019-01-28 11:23 | PHYS DOC ---
Past History Past Medical History: Depression, Diabetes, High Cholesterol, Heart Disease, Hypertension, [place], Renal Failure Past Surgical History: Other Alcohol Use: None Drug Use: None Adult General Chief Complaint Chief Complaint: SHORTNESS OF BREATH [facility] HPI 68-year-old male presents with shortness of breath. The patient was recently admitted to this facility with an elevated creatinine. He was discharged yesterday. Around 2:30 this morning, the patient woke up with right-sided chest pain and shortness of breath. It hurts to breathe. This pain has increased and the patient decided he should come back to the emergency room. He denies any falls or trauma. He was feeling fine last night when he went to bed. He has been coughing up bloody sputum. No fever over 100 at home. No fever in the ED. There is no pain with palpation of the right chest. Review of Systems Review of Systems Constitutional: Denies fever or chills [] Eyes: Denies change in visual acuity, redness, or eye pain [] HENT: Denies nasal congestion or sore throat [] Respiratory: Cough with shortness of breath [] Cardiovascular: No additional information not addressed in HPI [] GI: Denies abdominal pain, nausea, vomiting, bloody stools or diarrhea [] : Denies dysuria or hematuria [] Musculoskeletal: Denies back pain or joint pain [] Integument: Denies rash or skin lesions [] Neurologic: Denies headache, focal weakness or sensory changes [] Endocrine: Denies polyuria or polydipsia [] All other systems were reviewed and found to be within normal limits, except as documented in this note. Allergies Allergies Allergies Coded Allergies Type Severity Reaction Last Updated Verified No Known Drug Allergies 05/01/14 No Physical Exam Physical Exam Constitutional: Well developed, well nourished, moderate acute distress, non- toxic appearance. [] HENT: Normocephalic, atraumatic, bilateral external ears normal, oropharynx moist, no oral exudates, nose normal. [] Eyes: PERRLA, EOMI, conjunctiva normal, no discharge. [] Neck: Normal range of motion, no tenderness, supple, no stridor. [] Cardiovascular:Heart rate regular rhythm, no murmur [] Lungs & Thorax: Crackles at the right lung base, decreased breath sounds on the right compared to left.[] Abdomen: Bowel sounds normal, soft, no tenderness, no masses, no pulsatile masses. [] Skin: Warm, dry, no erythema, no rash. [] Back: No tenderness, no CVA tenderness. [] Extremities: No tenderness, no cyanosis, no clubbing, ROM intact, no edema. [] Neurologic: Alert and oriented X 3, normal motor function, normal sensory function, no focal deficits noted. [] Psychologic: Affect normal, judgement normal, mood normal. [] Current Patient Data Vital Signs Vital Signs Date Time Temp Pulse Resp B/P (MAP) Pulse Ox O2 Delivery O2 Flow Rate FiO2 01/28/19 11:11 98.3 94 20 84 Room Air EKG EKG Sinus rhythm, rate 92, normal axis, no ST elevations or depressions.[] Radiology/Procedures Radiology/Procedures [] Course & Med Decision Making Course & Med Decision Making Pertinent Labs and Imaging studies reviewed. (See chart for details) On arrival the patient's O2 sats remained 80s. He increased to 93% on 3 L nasal cannula. He appears quite uncomfortable with breathing. He has coarse breath sounds on the right. Chest x-rays are pending. I will give him 2 mg of morphine and some Zofran for his discomfort. Labs are pending. The patient's chest x-ray showed considerable congestion throughout the right lung carroll. No obvious focal consolidation. Official read is pending. The patient's labs are signi ficant for creatinine 1.8 which is much better than when he was admitted several days ago. His troponin however is 2.134 and his lactic acid is 2.8. The patient appears to be having an and STEMI. He was given 324 of aspirin. Given his low blood pressure, I will not give nitroglycerin sublingual. The morphine has controlled his pain to a tolerable level. I discussed the patient with cardiology, Dr. Coelho and he has advised transfer to [facility] He has requested a heparin drip which we have started. I talked with the hospitalist, Dr. Oliva and he has officially accepted the patient for transfer to the ICU. Patient and his family are in agreement with this plan. He will go by ambulance. 37 minutes of critical care time was spent on this patient exclusive of other billable procedures. [] Dragon Disclaimer Dragon Disclaimer This electronic medical record was generated, in whole or in part, using a voice recognition dictation system. Departure Departure: Impression: Primary Impression: NSTEMI (non-ST elevated myocardial infarction) Additional Impressions: Atelectasis of right lung Hypoxia Lactic acid acidosis Disposition: XF SHT-TRM HOSP Condition: GUARDED Referrals: MARÍA ELENA STARKS (PCP) Problem Qualifiers DANIEL CAMPOS DO Jan 28, 2019 11:23
[2019-01-28] MEDS ORDERED: ONDANSETRON PF 4 MG/2 ML VIAL. IV ONE (11:30)
[2019-01-28] MEDS ORDERED: MORPHINE SULFATE 2 MG/ML DISP.SYRIN. IV ONE (11:30)
--- NOTE | 2019-01-28 11:31 | EKG ---
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
[2019-01-28 11:35] LABS: BASO % 0 % (0-3); EOS % 0 % (0-3); HEMATOCRIT 41.6 % (39.0-53.0); HEMOGLOBIN 13.7 g/dL (13.0-17.5); LYMPH # 0.6 x10^3/uL (1.0-4.8); LYMPH % 8 % (24-48); MEAN CORPUSCULAR HEMOGLOBIN 30 pg (25-35); MEAN CORPUSCULAR HGB CONC 33 g/dL (31-37); MEAN CORPUSCULAR VOLUME 91 fL (79-100); MONO # 0.4 x10^3/uL (0.0-1.1); MONO % 5 % (0-9); NEUT # 7.3 x10^3uL (1.8-7.7); NEUT % 87 % (31-73); PLATELET COUNT 148 x10^3/uL (140-400); RED BLOOD COUNT 4.58 x10^6/uL (4.30-5.70); RED CELL DISTRIBUTION WIDTH 13.9 % (11.5-14.5); WHITE BLOOD COUNT 8.4 x10^3/uL (4.0-11.0)
[2019-01-28 11:48] LABS: CALCIUM 8.3 mg/dL (8.5-10.1); CREATININE 1.8 mg/dL (0.7-1.3); GFR 37.7; POTASSIUM 4.2 mmol/L (3.5-5.1); TOTAL PROTEIN 5.9 g/dL (6.4-8.2)
[2019-01-28] MEDS ORDERED: ASPIRIN 81 MG TAB.CHEW PO ONE (12:00)
[2019-01-28] MEDS ORDERED: NITROGLYCERIN SUBLINGUAL 0.4 MG BOTTLE OF 25. SL ONE (12:00)
[2019-01-28] MEDS ORDERED: HEPARIN for IV BOLUS 10,000 UNIT/10 ML VIAL. ONE (12:12)
[2019-01-28] MEDS ORDERED: HEPARIN 25,000UTS/500ML PREMIX 500 ML IV ONE (12:12)
[2019-01-28] MEDS ORDERED: IV NORMAL SALINE 1,000ML 1,000 ML IV ONE (12:15)
[2019-01-28] MEDS ORDERED: HEPARIN 25,000UTS/500ML PREMIX 500 ML IV PRN (12:15)
[2019-01-28] MEDS ORDERED: HEPARIN for IV BOLUS 10,000 UNIT/10 ML VIAL. IV ONE (12:15)
[2019-01-28] MEDS ORDERED: HEPARIN for IV BOLUS 10,000 UNIT/10 ML VIAL. IV PRN ×2 (12:15)
--- NOTE | 2019-01-28 12:50 | RAD ---
EXAM: AP View of the chest DATE: 01/28/2019 11:10 AM INDICATION: Shortness of breath COMPARISON: 01/24/2019 FINDINGS: The heart is not enlarged. Mediastinal and hilar contours are stable. Diffuse right lung airspace opacities are seen No pleural effusion or pneumothorax. IMPRESSION: 1. Diffuse right lung airspace opacities are seen likely developing consolidative process such as pneumonia. These opacities are new compared to 01/24/2019. Electronically signed by: Andrew Vivas MD (01/28/2019 12:47 PM) [facility]
[2019-01-28 14:04] VITALS: BP 94/53
== END 2019-01-28 14:08 | disposition short-term general hospital (02) ==
LOC: ER 11:05
DX: I21.4 Non-ST elevation (NSTEMI) myocardial infarction (principal); J98.11 Atelectasis; R09.02 Hypoxemia; E87.2 Acidosis; E11.9 Type 2 diabetes mellitus without complications; E78.00 Pure hypercholesterolemia, unspecified; I11.9 Hypertensive heart disease without heart failure; I25.2 Old myocardial infarction
CPT/HCPCS: 36415; 71045; 80053; 83605; 84484; 85025; 87040; 93005; 96374; 96375; 99291; J1644; J2270; J2405; J7030

== ENCOUNTER → 2019-06-24 | Outpatient (CLI) | payer MEDICARE, OTHER ==
--- NOTE | 2019-06-24 12:53 | RAD ---
EXAM: Thoracic spine, 3 views. HISTORY: Pain. COMPARISON: None. FINDINGS: 3 views of the thoracic spine are obtained. There is mild S-shaped thoracic scoliosis. There is no listhesis. The vertebral bodies are normal in height. There is degenerative endplate remodeling with disc space narrowing and osteophytosis at C5-C6. There are calcified the mediastinal granulomas. IMPRESSION: 1. Mild thoracic scoliosis. 2. Degenerative change at C5-C6. 3. No acute osseous finding. Electronically signed by: Natalie Munoz MD (06/24/2019 12:50 PM) [place] [id number]
== END | disposition home or self-care (01) ==
LOC: DXRAD 11:12
PROVIDERS: ATTEND Physical Medicine & Rehabilitation Pain Medicine
DX: M47.812 Spondylosis without myelopathy or radiculopathy, cervical region (principal); M48.02 Spinal stenosis, cervical region; M25.78 Osteophyte, vertebrae; M41.84 Other forms of scoliosis, thoracic region
CPT/HCPCS: 72072

== ENCOUNTER → 2019-07-30 | Outpatient (CLI) | payer MEDICARE, OTHER ==
--- NOTE | 2019-07-30 12:31 | RAD ---
Limited right upper quadrant abdominal ultrasound without comparison for abdominal pain. FINDINGS: Real-time grayscale and color Doppler evaluation of the right upper quadrant abdominal organs is performed. The liver is normal in contour and echogenicity with no focal parenchymal abnormalities. The liver measures 17.2 cm. No intra or extrahepatic biliary ductal dilatation. The common bile duct measures 4 mm in diameter. The gallbladder is fluid distended and grossly unremarkable with no shadowing stones or sludge. No sonographic Winslow sign was elicited. The pancreas is obscured by overlying bowel gas. The aorta is also obscured. The IVC is patent. The right kidney measures 10.5 cm and is free of any hydronephrosis or shadowing calculi. There is a cluster of 3 cysts at the upper pole which appear to be simple in nature. IMPRESSION: 1. Cluster of simple appearing right renal cysts. 2. No sonographically discernible acute abnormality of the right upper quadrant. Electronically signed by: Jerome Garcia MD (07/30/2019 12:28 PM) [id number]
== END | disposition home or self-care (01) ==
LOC: PMG 09:39
PROVIDERS: ATTEND Family Medicine
DX: R10.9 Unspecified abdominal pain (principal)
CPT/HCPCS: 76705

== ENCOUNTER → 2020-09-16 | Outpatient (CLI) | payer MEDICARE, OTHER ==
[~2020-09-16] MED LIST changes: +AMLO-187 PO; -AMLO10TA8 PO; +MULT-445 PO; -MULT1TAB52 PO
--- NOTE | 2020-09-16 14:51 | RAD ---
EXAM: Bilateral knees, 3 views. HISTORY: Pain. COMPARISON: 02/08/2016. FINDINGS: 3 views of both knees are obtained. There is a right knee arthroplasty in expected position . There is no evidence of arthroplasty loosening. There is left knee medial compartment joint space n arrowing with subchondral sclerosis, subchondral cyst formation and spurring. There is left genu varu s. There is mild left patellofemoral compartment spurring. There is a small left knee effusion. IMPRESSION: 1. Moderate medial compartment and mild patellofemoral compartment osteoarthritis of the left knee wi th small joint effusion and genu varus. 2. Right knee arthroplasty in expected position. Electronically signed by: Natalie Munoz MD (09/16/2020 2:49 PM) [id number]
== END ==
LOC: RAD 13:39
PROVIDERS: ATTEND Orthopaedic Surgery
DX: M17.0 Bilateral primary osteoarthritis of knee (principal); Z96.651 Presence of right artificial knee joint
CPT/HCPCS: 73560; 73565

== ENCOUNTER → 2020-10-22 | Outpatient (CLI) | payer MEDICARE, OTHER ==
--- NOTE | 2020-10-22 15:05 | RAD ---
Examination: CT thorax without contrast HISTORY: History of lung nodule COMPARISON: None available TECHNIQUE: Axial CT images of the chest were performed without contrast. Coronal and sagittal reforma ts are performed Exposure: One or more of the following individualized dose reduction techniques were utilized for thi s examination: 1. Automated exposure control 2. Adjustment of the mA and/or kV according to patient size 3. Use of iterative reconstruction technique FINDINGS: The central airways are patent. Mild cardiomegaly. Coronary artery calcifications identified. Calcified mediastinal lymph nodes identified. There are multiple patchy airspace opacities identified in the right upper lobe of the lung. Scattered bilateral lung nodules with the largest measuring 4mm nodule left lower lobe of the lung. The visualized noncontrasted liver, adrenals grossly appears unr emarkable. Calcified granulomas identified in the spleen. This cystic structure identified in the right kidney measures 5.7 cm could be a cyst or cystic lesion . Mild degenerative changes thoracic spine. IMPRESSION: 1. Multiple patchy airspace opacities identified in the right upper lobe of the lung likely pneumoni a or atelectasis. Follow-up to resolution. 2. Scattered bilateral lung nodules with the largest measuring 4mm nodule left lower lobe of the zachary g. Follow-up per Fleischner Society guidelines with a follow-up CT in 6-12 months. 3. Coronary artery calcifications. 4. 5.7 cm cystic structure identified in the right kidney could be a cyst or cystic lesion. Recommen d ultrasound right kidney. Electronically signed by: Moises Mckenzie MD (10/22/2020 3:03 PM) [id number]
== END ==
LOC: RAD 11:53
PROVIDERS: ATTEND Internal Medicine Pulmonary Disease
DX: R91.1 Solitary pulmonary nodule (principal); N28.1 Cyst of kidney, acquired; I25.10 Atherosclerotic heart disease of native coronary artery without angina pectoris
CPT/HCPCS: 71250

== ENCOUNTER → 2021-10-14 | Outpatient (CLI) | payer MEDICARE, OTHER ==
[~2021-10-14] MED LIST changes: +MORP-62 PO; -MORP15TA PO; -OMEP20TA8 PO; +OMEP20TA91 PO; +TIZA-75 PO; -TIZA4TAB2 PO
--- NOTE | 2021-10-14 13:59 | RAD ---
EXAM: RENAL ULTRASOUND with renal artery duplex Doppler CLINICAL HISTORY: Reason: HTN / Spl. Instructions: / History: COMPARISON: January 26, 2019 TECHNIQUE: Ultrasound examination of the bilateral kidneys and urinary bladder was performed. Realtime grayscale B-mode 2D sonographic images of the renal veins and arteries were performed with c olor flow, and spectral waveform analysis Doppler imaging. FINDINGS: Right kidney measures 127 mm in length. There is a simple appearing cyst partially exophytic on the r ight kidney measuring 28 x 32 x 31 mm. No hydronephrosis. Left kidney negative The renal veins are patent. Early systolic peak is poorly documented. Peak systolic velocity of the abdominal aorta is 104 cm/s. Normal waveform. Peak systolic velocity of the right renal artery is 109 cm/s. On the left the peak s ystolic velocities 110 cm/s. IMPRESSION: Right renal cyst with no overtly suspicious characteristics. No follow-up is recommended. No evidence of hemodynamically significant renal artery stenosis Electronically signed by: Berto Rock MD (10/14/2021 1:56 PM) [id number]
== END ==
LOC: US 10:25
PROVIDERS: ATTEND Physician Assistant
DX: N28.1 Cyst of kidney, acquired (principal); I12.9 Hypertensive chronic kidney disease with stage 1 through stage 4 chronic kidney disease, or unspecified chronic kidney disease; N18.30 Chronic kidney disease, stage 3 unspecified; I25.10 Atherosclerotic heart disease of native coronary artery without angina pectoris
CPT/HCPCS: 93975